=== PATIENT | female | born 1975 | race American Indian/Alaskan Native ===

== ENCOUNTER 2016-11-15 10:59 | Emergency (ER) | payer OTHER ==
[2016-11-15 11:22] VITALS: BP 101/63
[2016-11-15 11:54] LABS: Bacteria,Urine 1+ /HPF (Negative); Bilirubin,Urine NEG (Negative); Blood,Urine SM (Negative); Ketones,Urine NEG (Negative); Leukocyte Esterase,Urine MOD (Negative); Mucus,Urine FEW /HPF; Nitrite,Urine NEG (Negative); Protein,Urine <15 mg/dL mg/dL (Negative); Urobilinogen,Urine < 2.0 mg/dL (<2.0)
[2016-11-15] MEDS ORDERED: XYLOCAINE 1% MPF 5 mL INFILTRATI ONE (13:09)
[2016-11-15] MEDS ORDERED: ROCEPHIN IM ONE (13:09)
[2016-11-15] MEDS ORDERED: DIFLUCAN PO ONE (14:00)
--- NOTE | 2016-11-15 17:28 | Emergency Department Report ---
Entered by SKY BALDERRAMA, acting as scribe for IVA SMITH PA. ED Female HPI - General Chief complaint: Urogenital-Female Stated complaint: VAGINAL BURNING Time Seen by Provider: 11/15/16 12:56 Source: patient Mode of arrival: Ambulatory Limitations: No Limitations - History of Present Illness Initial comments: 41 y/o female with a PMHx of a liver mass presents to the ED c/o vaginal burning that began 2 days ago. Rates severity a 10/10, which she describes as burning in quality. Aggravated with urination and alleviated with nothing. Associated thick white vaginal discharge, but she denies vaginal bleeding, hematuria, dysuria, urgency, frequency, abdominal pain, nausea, and vomiting. Notes she recently was recently diagnosed with a bladder infection, which she completed her course of prescribed Bactrim and Pyridium with no relief. Took penicillin at home with no relief. Allergic to diphenhydramine HCl. Complaint: other (vaginal burning) Onset/Timin -: days(s) Location: labia Radiation: non-radiating Severity: severe Severity scale (0 -10): 10 Quality: burning Consistency: constant Improves with: none Worsens with: urination Are you Now?: No Associated Symptoms: denies other symptoms, vaginal discharge (white thick). denies: vaginal bleeding, abdominal pain, nausea/vomiting, fever/chills, headaches, loss of appetite, dysuria, hematuria, rash, seizure, shortness of breath, syncope, weakness - Related Data Sexually active: No Previous Rx's Medication Instructions Recorded Last Taken Type Terconazole [Terazol 7] 1 applic VG QHS #1 tube 11/15/16 Unknown Rx Allergies Allergy/AdvReac Type Severity Reaction Status Date / Time diphenhydramine HCl Allergy Rash Verified 11/15/16 11:15 [From Benadryl] ED Review of Systems Comment: All other systems reviewed and negative Constitutional: denies: chills, fever Eyes: denies: eye pain, eye discharge, vision change ENT: denies: ear pain, throat pain Respiratory: denies: cough, orthopnea, shortness of breath, SOB with exertion, SOB at rest, stridor, wheezing Cardiovascular: denies: chest pain, palpitations, dyspnea on exertion, orthopnea , edema, syncope, paroxysmal nocturnal dyspnea Endocrine: no symptoms reported Gastrointestinal: denies: abdominal pain, nausea, vomiting, diarrhea Genitourinary: other (vaginal burning). denies: urgency, dysuria, frequency, hematuria, discharge, abnormal menses, dyspareunia Musculoskeletal: denies: back pain, joint swelling, arthralgia Skin: denies: rash, lesions Neurological: denies: headache, weakness, paresthesias ED Past Medical Hx - Past Medical History Previous Medical History?: Yes Additional medical history: "Liver mass" never followed up - Surgical History Past Surgical History?: No - Family History Family history: no significant - Social History Smoking Status: Current Every Day Smoker Substance Use Type: None - Medications Home Medications: Home Medications Medication Instructions Recorded Confirmed Last Taken Type Terconazole [Terazol 7] 1 applic VG QHS #1 tube 11/15/16 Unknown Rx ED Physical Exam - General Limitations: No Limitations General appearance: alert, in no apparent distress - Head Head exam: Present: atraumatic, normocephalic - Eye Eye exam: Present: normal appearance, PERRL, EOMI Pupils: Present: normal accommodation - ENT ENT exam: Present: normal exam, mucous membranes moist, normal external ear exam - Neck Neck exam: Present: normal inspection, full ROM. Absent: tenderness, meningismus, lymphadenopathy - Respiratory Respiratory exam: Present: normal lung sounds bilaterally. Absent: respiratory distress, wheezes, rales, rhonchi, stridor, chest wall tenderness, accessory muscle use, decreased breath sounds - Cardiovascular Cardiovascular Exam: Present: regular rate, normal rhythm, normal heart sounds. Absent: systolic murmur, diastolic murmur - GI/Abdominal GI/Abdominal exam: Present: soft, normal bowel sounds. Absent: distended, tenderness, guarding, rebound, rigid - External exam: Present: normal external exam. Absent: erythema, swelling, lesions, lacerations, bleeding Speculum exam: Present: vaginal discharge, cervical discharge. Absent: erythema , vaginal bleeding, foreign body, tissue Bi-manual exam: Present: normal bi-manual exam. Absent: cervical motion tendernes, adnexal tenderness, uterine enlargement, uterine tenderness - Extremities Exam Extremities exam: Present: normal inspection, full ROM, normal capillary refill - Back Exam Back exam: Present: normal inspection, full ROM. Absent: tenderness, CVA tenderness (R), CVA tenderness (L) - Neurological Exam Neurological exam: Present: alert, oriented X3, CN II-XII intact, normal gait - Psychiatric Psychiatric exam: Present: normal affect, normal mood - Skin Skin exam: Present: warm, dry, intact. Absent: rash ED Course Vital Signs 11/15/16 11/15/16 11:18 12:39 Temperature 98.5 F Pulse Rate 70 70 Respiratory 18 18 Rate Blood Pressure 101/63 O2 Sat by Pulse 98 99 Oximetry ED Medical Decision Making - Medical Decision Making 41 year old female presents with UTI/yeast infection ED course: Urinalysis, urine test, wet prep, collected. UA shows UTI , wet prep shows yeast infection Patient given Rocephin 250 mg to cover for urinary tract infection. She has just recently been on antibiotics and still has a UTI Gonorrhea and Chlamydia labs ordered for further evaluation. Vital signs stable patient is in no acute or respiratory distress. Discussed findings with patient about diagnoses. Discussed treatment in ED with patient Discussed with patient to follow up with PCP as referred, and to return to the ED if symptoms return or worsen. Patient states understanding and will follow instructions. Pt verbally states understanding and will comply to follow up. ED Disposition Clinical Impression: Vulvovaginal candidiasis UTI (urinary tract infection) Qualifiers: Urinary tract infection type: acute cystitis Hematuria presence: with hematuria Qualified Code(s): N30.01 - Acute cystitis with hematuria Disposition: TO HOME OR SELFCARE Is pt being admited?: No Does the pt Need Aspirin: No Condition: Stable Instructions: Urinary Tract Infection in Women (ED), Vulvovaginal Candidiasis ( ED), Vaginitis (ED) Prescriptions: Terconazole [Terazol 7] 1 applic VG QHS #1 tube Referrals: PRIMARY CARE, [Primary Care Provider] - 3-5 Days ROMANA PERDOMO MD [Referring] - 3-5 Days TOMAS LOPEZ MD [Referring] - 3-5 Days Forms: Accompanied Note, Work/School Release Form(ED) Time of Disposition: 13:47 This documentation as recorded by the TACOS peters JASMINE,accurately reflects the service I personally performed and the decisions made by ,IVA SMITH PA.
== END 2016-11-15 13:59 | disposition home or self-care (01) ==
LOC: ED 10:59
DX: N30.01 Acute cystitis with hematuria (principal); B37.3 Candidiasis of vulva and vagina; F17.200 Nicotine dependence, unspecified, uncomplicated
CPT/HCPCS: 36415; 81001; 84703; 87210; 87591; 96372; 99284; J0696